=== PATIENT | male | born 1955 | race Caucasian/White ===

== ENCOUNTER → 2017-12-17 11:13 | Outpatient (CLI) | payer BC, SELFPAY ==
[2017-12-17 13:19] LABS: Alanine Aminotransferase 33 IU/L (21-72); Albumin 4.4 g/dL (3.5-5.0); Albumin Globulin Ratio 1.8 (1.0-2.8); Alkaline Phosphatase 41 U/L (38-126); Aspartate Aminotransferase 24 IU/L (17-59); Bilirubin Total 0.6 mg/dL (0.2-1.3); Blood Urea Nitrogen 14 mg/dL (9-20); Calcium 9.3 mg/dL (8.4-10.2); Carbon Dioxide 31 mmol/L (22-32); Chloride 103 mmol/L (98-107); Cholesterol 146 mg/dL (140-199); Estimated Glomerular Filt Rate > 60.0 mL/min (>60); Globulin 2.5 g/dL (1.7-4.1); Glucose 87 mg/dL (80-110); HDL Cholesterol 34 mg/dL (40-60); HEMOLYSIS < 15 (0-50); LDL Cholesterol Calculated 68 mg/dL (<100); Potassium 3.9 mmol/L (3.4-5.1); Sodium 145 mmol/L (137-145); Total Protein 6.9 g/dL (6.3-8.2); Triglycerides 222 mg/dL (35-150)
[2017-12-17 13:46] LABS: Prostate Specific Antigen Scrn 0.811 ng/mL (0.1-4.0)
== END ==
PROVIDERS: Family Provider Internal Medicine; PCP Internal Medicine; Visit Provider Internal Medicine
DX: I10 Essential (primary) hypertension (principal); F52.21 Male erectile disorder
CPT/HCPCS: 36415; 80053; 80061; G0103

== ENCOUNTER → 2018-01-01 13:18 | Outpatient (CLI) | payer BC, SELFPAY ==
--- NOTE | 2018-01-01 13:00 | DI.NM.S_ITS ---
PATIENT NAME: REMINGTON TURNER : 1955 EXAM DATE: 01/01/2018 15:06 ORD. : LARON HCENEY M.D. CC: MODALITY: NM PATIENT TYPE: Out CONTRAST MEDIA: STATION ID: [id number] FLUORO TIME: PROCEDURE: NM MYNOR PERF SPECT REST & STR (2-day protocol) Rest and pharmacological stress myocardial perfusion SPECT with gated imaging and ejection fraction RADIOPHARMACEUTICAL: 24.6 mCi Tc-99m tetrafosmin IV at rest and 26 mCi Tc-99m tetrafosmin IV at peak effect of pharmacological stress. Kba-jlu-vwjnuyyt was performed. INDICATIONS: CHEST PAIN TECHNIQUE: Radiopharmaceutical was injected at peak stress test, and also at rest. SPECT images were obtained. SPECT myocardial perfusion images were displayed in short axis, horizontal long axis, and vertical long axis views. Gated images were reviewed using eMithilaHaat software. COMPARISON: None. CARDIAC STRESS: A pharmacologic stress test was performed under the supervision of an attending staff, using an infusion of Lexiscan. Hemodynamic data: There is normal blood pressure and heart rate response to pharmacologic stress. Symptoms: The patient denied anginal chest pain. Aminophylline: None EKG: No diagnostic changes of ischemia; no ectopy. FINDINGS: Raw data: There is good myocardial uptake of radiotracer. No significant motion artifacts. Lung-toheart ratio is 0.29 (normal is less than 0.38 for tetrafosmin tracer). Left ventricle function: Gated images demonstrate normal left ventricular wall thickening. No segmental wall motion abnormalities. No transient ischemic dilation; TID is 1.05 (normal less than 1.3). Left ventricle resting end diastolic volume is 158 mL. Left ventricle stress ejection fraction is 68; normal range is above 45%. Myocardial perfusion: There is a very small, subtle perfusion abnormality in the apical inferolateral wall (left circumflex distribution) which appears better at rest, indicating a small reversible defect. IMPRESSION: Mildly abnormal stress test with a small reversible perfusion defect in the apical inferolateral wall. There is no associated wall motion abnormalities. The TID ratio is normal. The Continued Report - Page 2 of 2 PATIENT NAME: REMINGTON TURNER : 1955 EXAM DATE: 01/01/2018 15:[address].: LARON CHENEY M.D. CC: MODALITY: NM PATIENT TYPE: Out CONTRAST MEDIA: STATION ID: [id number] FLUORO TIME: rest ejection fraction is 72% and the stress ejection fraction is slightly lower at 68%. However, this is a 2-day protocol and the small difference is probably of no clinical significance. Dictated by: Mikal Chappell on 01/05/2018 at 13:23 Approved by: Mikal Chappell on 01/05/2018 at 13:38
--- NOTE | 2018-01-01 14:45 | PM.TREADMILL ---
Cardiac Stress Test Report Referral & Results Date Patient Seen: 01/01/18 Requesting provider: Jam John Indication: Chest pain Rest ECG: Unremarkable Procedure Note: After both written and verbal informed consent the patient had an IV started by the diagnostic imaging RN and then was hooked up to the treadmill monitoring system. The patient was placed on the treadmill at 1 mile an hour with no elevation and was then injected with the Ramya scan material. The Cardiolite was then immediately administered. The patient spent an additional 2-3 minutes on the treadmill before being returned to the [facility] in the supine position. The patient had a normal response to all infused materials. Impression: Normal response as above, perfusion imaging will be reported separately and will potentially show any ischemia if present Please note: Actual ECG tracings can be found in the PACS system.
== END ==
PROVIDERS: Family Provider Internal Medicine; PCP Internal Medicine; Visit Provider Internal Medicine
DX: R07.9 Chest pain, unspecified (principal)
CPT/HCPCS: 78452; 93016; 93017; 93018; A9502; J2785

== ENCOUNTER → 2021-05-16 09:33 | Outpatient (CLI) | payer OTHER, SELFPAY ==
[2021-05-16 10:18] LABS: COVID19 -Nasal RAPID Negative (Negative)
== END ==
PROVIDERS: Family Provider Internal Medicine; PCP Internal Medicine; Visit Provider Surgery
DX: Z01.812 Encounter for preprocedural laboratory examination (principal); Z20.822 Contact with and (suspected) exposure to COVID-19
CPT/HCPCS: 87635; C9803

== ENCOUNTER 2021-05-17 11:24 | Day surgery (SDC) | payer OTHER, SELFPAY ==
--- NOTE | 2021-05-17 | PATH_ITS ---
[facility] Accession Number: [id number] . 01 Material submitted: . colon - TRANSVERSE COLON POLYP . 02 Diagnosis: Transverse Colon Polyp, Biopsy: Tubular adenoma. MRV 05/21/2021 1404 Local . 02 Electronically signed: . Howie Friedman MD, PhD, Pathologist NPI- [id number] . 01 Gross description: . TRANSVERSE COLON POLYP: Received in formalin is 1 fragment(s) of quinonez, soft tissue measuring 0.4 x 0.4 x 0.4 cm submitted entirely in 1 cassette(s) /CARIDAD 05/18/2021 2203 Local . 02 Pathologist provided ICD-10: D12.3 . 02 CPT . 266563 Specimen Comment: A courtesy copy of this report has been sent to [phone] Performed at: 01 [facility] [address] [id number] MD Juan A Bonilla MD Phone: [phone] Performed at: 02 [facility] [address] [place], [place] [id number] MD Luz Corona MD Phone: [phone]
--- NOTE | 2021-05-17 11:39 | PM.HP.1 ---
History of Present Illness History of Present Illness Date Patient Seen: 05/17/21 Time Patient Seen: 11:39 Chief complaint: SCREENING COLONOSCOPY Narrative: Tim is a 66-year-old man who is due for colonoscopy. He believes his last 1 was 3 years ago and he was told he should go 3 years. He has no symptoms including no melena, hematochezia or change in bowel function. Patient History Surgical History (Updated 01/07/18 @ 14:06 by Silvia Viera LPN) H/O carpal tunnel repair (~1987) Family & Social History Family History (Updated 01/07/18 @ 14:06 by Silvia Viera LPN) Mother Hypertension Heart disease Social History: household members spouse Tobacco & Substance use: Smoking Status Never smoker alcohol intake current Meds Home Medications and Allergies Home Medications Medication Instructions Recorded Confirmed Type TRAZODONE HCL (Oleptro ER) 150 mg PO HS #0 09/23/11 01/07/18 History carvedilol 25 mg tablet (Coreg) 25 mg PO BID #0 09/23/11 01/07/18 History citalopram 20 mg tablet 20 mg PO QDAY #0 09/23/11 History felodipine 5 mg tablet,extended 5 mg PO QDAY #0 09/23/11 01/07/18 History release 24 hr hydrochlorothiazide 25 mg tablet 25 mg PO QDAY #0 09/23/11 01/07/18 History omeprazole 40 mg capsule,delayed 40 mg PO QDAY@0600 #0 09/23/11 History release turmeric PO 01/07/18 01/07/18 History sodium,potassium,mag sulfates 17.5 See Rx Instructions PO .COMPLEX 05/03/21 Rx gram-3.13 gram-1.6 gram oral soln #354 ml (Suprep Bowel Prep Kit) Allergies Allergy/AdvReac Type Severity Reaction Status Date / Time No Known Drug Allergies Allergy Verified 05/17/21 11:39 Exam Const General: healthy appearing Resp Effort & Inspection: normal respiratory effort Cardio Rhythm: regular rhythm GI Palpation: soft Assessment & Plan Assessment and plan (1) History of colon polyps: Status: Acute Plan We discussed the risks and benefits of colonoscopy and he would like to proceed. COVID-19 COVID-19 status: Negative Result date/Date tested (Pos, Neg/Pending): 05/16/21 Time Spent With Patient Critical Care time: I spent a total of [] minutes of critical care time on this patient's care today; this time is exclusive of procedural time.
[2021-05-17 11:42] VITALS: BP 136/85; PULSE 71; RESP 16; TEMP 36.2; O2SAT 96; BMI 27.1
[2021-05-17] MEDS: MIDAZOLAM 5 MG/5 ML VIAL IV (12:05)
[2021-05-17] MEDS: fentaNYL 250 MCG/5 ML INJ IV (12:06)
--- NOTE | 2021-05-17 12:10 | PM.OP.COLON ---
Operative Date/Time/Diagnoses Date of procedure: 05/17/21 Time of procedure: 12:10 Pre-op diagnosis: History of colon polyps Post-op diagnosis: same Procedure & Clinicians Study performed: Colonoscopy Same procedure as scheduled: Yes Surgeon: Rubin Clarke Procedure Notes SCOAP/Timeout: Yes Procedure in detail: Procedure: The patient was brought to the endoscopy suite, placed in left lateral decubitus position. The patient was connected to monitoring devices. A time-out was performed. Sedation was administered. Once the patient was adequately sedated, a digital rectal exam was performed and was normal. The scope was then inserted and advanced to the cecum where the appendiceal orifice was identified and photographed. The scope was then slowly withdrawn over greater than 6 minutes. Mucosa was thoroughly inspected. There were a few diverticula in the right colon. There was 1 small polyp in the transverse colon removed with the cold snare. This was roughly 5 mm. There was scattered sigmoid diverticula. The scope was retroflexed in the rectum. No abnormalities were noted. The scope was straightened and removed. The patient was awakened and brought to recovery. Versed: 7 mg Fentanyl: 175 mcg EBL: 5 mL Findings: Scattered diverticula in the right colon, sigmoid colon and 1 small polyp in the transverse colon. Scope withdrawal time: 9 Sedation minutes: 17 Post-procedure Recommendations: Will call with biopsy results Disposition: PACU
[2021-05-17 12:16] VITALS: BP 111/59; PULSE 65; RESP 19; TEMP 36.5; O2SAT 94
[2021-05-17 12:20] VITALS: BP 103/64; PULSE 78; RESP 21; O2SAT 94
[2021-05-17 12:25] VITALS: BP 108/62; PULSE 63; RESP 20; O2SAT 94
[2021-05-17 12:35] VITALS: BP 106/63; BP 107/62; PULSE 62; RESP 18; RESP 20; TEMP 36.4; O2SAT 93; O2SAT 94
[2021-05-17 12:40] VITALS: BP 107/62; PULSE 62; RESP 15; TEMP 36.4; O2SAT 93
== END 2021-05-17 13:08 | disposition home or self-care (01) ==
PROVIDERS: Family Provider Internal Medicine; PCP Student in an Organized Health Care Education/Training Program; Referring Provider Surgery; Visit Provider Surgery
PROC: 0DJD8ZZ Inspection of Lower Intestinal Tract, Via Natural or Artificial Opening Endoscopic (ICD-10-PCS; CPT 45378; principal; 2021-05-17 13:00)
DX: Z12.11 Encounter for screening for malignant neoplasm of colon (principal); Z86.010 Personal history of colon polyps; K57.30 Diverticulosis of large intestine without perforation or abscess without bleeding; D12.3 Benign neoplasm of transverse colon
CPT/HCPCS: 45385; 99152; J2250; J3010

== ENCOUNTER → 2021-07-10 10:14 | Outpatient (CLI) | payer OTHER, SELFPAY | PROVIDERS: Family Provider Internal Medicine; PCP Student in an Organized Health Care Education/Training Program; Referring Provider Orthopaedic Surgery; Visit Provider Orthopaedic Surgery | DX: Z01.818 Encounter for other preprocedural examination (principal) | CPT/HCPCS: 93005 ==

== ENCOUNTER → 2021-10-29 10:38 | Outpatient (CLI) | payer OTHER, SELFPAY ==
[2021-10-29 12:42] LABS: Add Manual Diff / Slide Review NO; Basophils Absolute Auto 0 /uL (0-100); Basophils Percent Auto 0.4 % (0-2); Eosinophils Absolute Auto 100 /uL (0-450); Hemoglobin 15.3 g/dL (13.5-17.5); Lymphocytes Absolute Auto 1700 /uL (1100-4500); Lymphocytes Percent Auto 18.1 % (25-40); Mean Corpuscular HGB Conc 35.5 % (30-36); Mean Corpuscular Hemoglobin 33.2 PG (26-34); Mean Corpuscular Volume 93.4 fL (80-100); Monocytes Absolute Auto 900 /uL (0-900); Monocytes Percent Auto 9.6 % (3-14); Neutrophils Absolute Auto 6700 /uL (1500-7000); Neutrophils Percent Auto 70.9 % (50-75); Platelet Count 174 X10^3/uL (150-400); Red Cell Distribution Width 12.8 % (11.6-14.8); White Blood Cell Count 9.4 X10^3/uL (4.5-11.0)
[2021-10-29 13:02] LABS: BUN Creatinine Ratio 12.7 (6-22); Blood Urea Nitrogen 13 mg/dL (9-20); Calcium 8.7 mg/dL (8.4-10.2); Carbon Dioxide 30 mmol/L (22-32); Chloride 101 mmol/L (98-107); Estimated Glomerular Filt Rate > 60 mL/min (>60); Glucose 121 mg/dL (80-110); HEMOLYSIS < 15 (0-50); Sodium 139 mmol/L (137-145)
[2021-10-29 13:26] LABS: Potassium 2.6 mmol/L (3.4-5.1)
== END ==
PROVIDERS: Family Provider Internal Medicine; PCP Student in an Organized Health Care Education/Training Program; Referring Provider Orthopaedic Surgery; Visit Provider Orthopaedic Surgery
DX: M25.562 Pain in left knee (principal)
CPT/HCPCS: 36415; 80048; 85025